=== PATIENT | male | born 2000 | race Caucasian/White ===

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

== ENCOUNTER 2020-07-31 15:19 | Emergency (ER) | payer MEDICAID, OTHER ==
[2020-07-31] MEDS ORDERED: Lidocaine 1% with EPINEPHrine 1:100,000 10 ML MDV INJECT ONE (15:58)
[2020-07-31] MEDS ORDERED: Lidocaine 1% with EPINEPHrine 1:100,000 20 ML MDV INJECT ONE (16:00)
[2020-07-31] MEDS ORDERED: Lidocaine 1% with EPINEPHrine 1:100,000 20 ML MDV ONE (16:00)
--- NOTE | 2020-07-31 16:10 | EDM.PDOC ---
ED HPI GENERAL MEDICAL PROBLEM - General Chief Complaint: Skin Complaint Stated Complaint: SKIN TAG REMOVED BLEEDING FOR 2 HRS Time Seen by Provider: 07/31/20 15:23 Source of Information: Reports: Patient History Limitations: Reports: No Limitations - History of Present Illness INITIAL COMMENTS - FREE TEXT/NARRATIVE: HISTORY AND PHYSICAL: History of present illness: Patient is a 20-year-old male who presents emergency room today with concern of a bleeding skin tag on his abdomen that started 2 hours prior to travel to the emergency room. Patient states that he scratched the skin tag which she has had for many years and it started bleeding. Patient states that he is apply pressure to the area and is unable to get it to stop bleeding. Patient states that he has had this area for quite some time and has noticed that enlarging over the past 1 year but has not been seen or evaluated for this. Patient denies any dizziness or lightheaded and states that he has been keeping pressure on it consistently for almost 2 hours and continues to bleed. Patient states that he is up-to-date on tetanus. Patient denies any other symptoms or concerns. Patient denies fever, chills, chest pain, shortness of breath, or cough. Denies headache, neck stiff ness, change in vision, syncope, or near syncope. Denies nausea, vomiting, abdominal pain, diarrhea, constipation, or dysuria. Has not noted any blood in urine or stool. Patient has been eating and drinking appropriately. Review of systems: As per history of present illness and below otherwise all systems reviewed and negative. Past medical history: As per history of present illness and as reviewed below otherwise noncontributory. Surgical history: As per history of present illness and as reviewed below otherwise noncontributory. Social history: See social history for further information Family history: As per history of present illness and as reviewed below otherwise noncontributory. Physical exam: General: Patient is alert, oriented, and in no acute distress. Patient sitting comfortably on exam table. Vitals stable and reviewed by me. HEENT: Atraumatic, normocephalic, pupils equal and reactive bilaterally, negative for conjunctival pallor or scleral icterus, mucous membranes moist, TMs normal bilaterally, throat clear, neck supple, nontender, trachea midline. No drooling or trismus noted. No meningeal signs. No hot potato voice noted. Lungs: Clear to auscultation, breath sounds equal bilaterally, chest nontender. Heart: S1S2, regular rate and rhythm without overt murmur Abdomen: See skin. Otherwise, Soft, nondistended, nontender. Negative for masses or hepatosplenomegaly. Negative for costovertebral tenderness. Pelvis: Stable nontender. Genitourinary: Deferred. Rectal: Deferred. Skin: There is a 1cm hemangioma of the right sided mid abdomen with the bottom open and actively bleeding. Otherwise, Intact, warm, dry. No lesions or rashes noted. Extremities: Atraumatic, negative for cords or calf pain. Neurovascular unremarkable. Neuro: Awake, alert, oriented. Cranial nerves II through XII unremarkable. Cerebellum unremarkable. Motor and sensory unremarkable throughout. Exam nonfoc al. Notes: Pressure dressing with Surgicel was applied to the area that was bleeding and patient kept this on for 20 to 30 minutes. After removal, bleeding has stopped and hemostasis achieved. Remainder Surgicel Tegaderm dressing placed. Signs and symptoms are prompt return to the ED thoroughly discussed with patient. Discussed importance for follow-up with a primary care provider. Voices understanding and is agreeable to plan of care. Denies any further questions or concerns at this time. Diagnostics: None Therapeutics: Lidocaine w epi, SurgiSeal pressure dressing Prescription: None Impression: Bleeding wound Plan: 1. Keep the dressing on for 24 hours before removing. Remove the dressing in 24 hours as discussed. 2. Follow-up with a primary care provider as discussed. Return to the ED as needed and as discussed. Definitive disposition and diagnosis as appropriate pending reevaluation and review of above. - Related Data Allergies Allergy/AdvReac Type Severity Reaction Status Date / Time No Known Allergies Allergy Verified 07/31/20 15:40 Home Meds: Home Meds . [No Known Home Meds] 10/02/17 [History] Past Medical History - Past Health History Medical/Surgical History: Denies Medical/Surgical History Neurological History: Reports: Concussion Social & Family History - Family History Family Medical History: No Pertinent Family History - Caffeine Use Caffeine Use: Reports: None - Recreational Drug Use Recreational Drug Use: No ED ROS GENERAL - Review of Systems Review Of Systems: Comprehensive ROS is negative, except as noted in HPI. ED EXAM, SKIN/RASH Exam: See Below (see dictation) Course - Vital Signs Last Recorded V/S: Last Vital Signs Temp 97.9 F 06/22/21 15:38 Pulse 97 07/31/20 15:38 Resp 16 07/31/20 15:38 BP 136/85 07/31/20 15:38 Pulse Ox 98 07/31/20 15:38 - Orders/Labs/Meds Meds: Medications Discontinued Medications Generic Name Dose Route Start Last Admin Trade Name Champ PRN Reason Stop Dose Admin Lidocaine/Epinephrine 10 ml 07/31/20 15:58 07/31/20 16:01 Lidocaine 1% With Epinephrine 1:100,000 10 Ml Mdv INJECT 07/31/20 15:59 Not Given ONETIME ONE Lidocaine/Epinephrine 20 ml 07/31/20 16:00 07/31/20 16:01 Lidocaine 1% With Epinephrine 1:100,000 20 Ml Mdv INJECT 07/31/20 16:01 20 ml ONETIME ONE Administration Lidocaine/Epinephrine Confirm 07/31/20 16:00 07/31/20 16:01 Lidocaine 1% With Epinephrine 1:100,000 20 Ml Mdv Administered 07/31/20 16:01 Not Given Dose 20 ml .ROUTE .STK-MED ONE Departure - Departure Time of Disposition: 16:45 Disposition: Home, Self-Care 01 Clinical Impression: Bleeding from wound - Discharge Information Instructions: Uncontrolled Wound Bleeding Referrals: PCP,Declined [Primary Care Provider] - Forms: ED Department Discharge Additional Instructions: The following information is given to patients seen in the emergency department who are being discharged to home. This information is to outline your options for follow-up care. We provide all patients seen in our emergency department with a follow-up referral. The need for follow-up, as well as the timing and circumstances, are variable depending upon the specifics of your emergency department visit. If you don't have a primary care physician on staff, we will provide you with a referral. We always advise you to contact your personal physician following an emergency department visit to inform them of the circumstance of the visit and for follow-up with them and/or the need for any referrals to a consulting specialist. The emergency department will also refer you to a specialist when appropriate. This referral assures that you have the opportunity for follow-up care with a specialist. All of these measure are taken in an effort to provide you with optimal care, which includes your follow-up. Under all circumstances we always encourage you to contact your private physician who remains a resource for coordinating your care. When calling for follow-up care, please make the office aware that this follow-up is from your recent emergency room visit. If for any reason you are refused follow-up, please contact the [facility] Emergency Department at and asked to speak to the emergency department charge nurse. [facility] [address] [place] [address] [facility] [address] [place] [address] 1. Keep the dressing on for 24 hours before removing. Remove the dressing in 24 hours as discussed. 2. Follow-up with a primary care provider as discussed. Return to the ED as needed and as discussed. Sepsis Event Note (ED) - Evaluation Sepsis Screening Result: No Definite Risk - Focused Exam Vital Signs: Vital Signs Temp Pulse Resp BP Pulse Ox 07/31/20 15:38 97.9 F 97 16 136/85 98
== END 2020-07-31 17:18 | disposition home or self-care (01) ==
LOC: MW.ED 15:19
DX: L76.21 Postprocedural hemorrhage of skin and subcutaneous tissue following a dermatologic procedure (principal); D18.03 Hemangioma of intra-abdominal structures
CPT/HCPCS: 99283

== ENCOUNTER 2023-08-08 12:22 | Emergency (ER) | payer MEDICAID ==
[2023-08-08] MEDS ORDERED: Sodium Chloride 0.9% 10 ML Syringe FLUSH PRN (12:30)
[2023-08-08] MEDS ORDERED: Sodium Chloride 0.9% 2.5 ML Syringe FLUSH PRN (12:30)
[2023-08-08] MEDS: Sodium Chloride 0.9% 1,000 ML IV ONE ×2 (13:15→14:17)
[2023-08-08 13:21] LABS: APPEARANCE,URINE CLEAR; BILIRUBIN,URINE NEGATIVE (NEGATIVE); COLOR,URINE YELLOW; GLUCOSE,URINE NEGATIVE (NEGATIVE); KETONES,URINE TRACE mg/dL (NEGATIVE); LEUKOCYTE ESTERASE,URINE NEGATIVE (NEGATIVE); NITRITE,URINE NEGATIVE (NEGATIVE); OCCULT BLOOD,URINE NEGATIVE (NEGATIVE); PH,URINE 5.5 (5.0-8.0); PROTEIN,URINE 30 mg/dL (NEGATIVE); UROBILINOGEN,URINE 0.2 EU/dL (<2.0)
[2023-08-08 13:24] LABS: BASOPHILS ABSOLUTE AUTO 0.05 K/uL (0.00-0.20); BASOPHILS PERCENT AUTO 0.3 % (0.0-1.0); HEMATOCRIT 46.2 % (42.0-52.0); HEMOGLOBIN 16.8 g/dL (14.0-18.0); IMMATURE GRAN ABSOLUTE AUTO 0.07 K/uL (0.00-0.05); IMMATURE GRAN PERCENT AUTO 0.5 % (0.0-0.4); LYMPHOCYTES ABSOLUTE AUTO 0.86 K/uL (1.00-4.80); LYMPHOCYTES PERCENT AUTO 5.6 % (24.0-44.0); MEAN CORPUSCULAR HEMOGLOBIN 32.9 pg (28.0-32.0); MEAN CORPUSCULAR HGB CONC 36.4 g/dL (32.0-36.0); MEAN CORPUSCULAR VOLUME 90.4 fL (83.0-99.0); MEAN PLATELET VOLUME 8.8 fL (9.4-12.4); MONOCYTES PERCENT AUTO 5.8 % (0.0-8.0); NEUTROPHILS ABSOLUTE AUTO 13.53 K/uL (1.80-7.70); NEUTROPHILS PERCENT AUTO 87.8 % (41.0-71.0); PLATELET COUNT,PLT 239 K/uL (150-400); RED BLOOD CELL COUNT 5.11 M/uL (4.52-5.90); WHITE BLOOD CELL COUNT,WBC 15.41 K/uL (3.9-11.3)
[2023-08-08 13:30] LABS: BACTERIA,URINE OCCASIONAL (NEGATIVE); EPITHELIAL CELLS,URINE OCCASIONAL (NONE-FEW); RBC,URINE 0-1 (0-2/HPF)
[2023-08-08 13:31] LABS: AMPHETAMINES SCREEN, URINE NEGATIVE (CUTOFF=500); BARBITURATE SCREEN,URINE NEGATIVE (CUTOFF=200); BENZODIAZEPINES SCREEN,URINE NEGATIVE (CUTOFF=150); BUPRENORPHINE SCREEN,URINE NEGATIVE (CUTOFF=10); METHADONE SCREEN, URINE NEGATIVE (CUTOFF=200); METHAMPHETAMINES SCREEN, URINE NEGATIVE (CUTOFF=500); MUCUS,URINE LIGHT (NONE-MOD); OXYCODONE SCREEN,URINE NEGATIVE (CUT0FF=100); PCP SCREEN,URINE NEGATIVE (CUTOFF=25); THC SCREEN,URINE 20 NG/ML PRESUMPTIVE POSITIVE (CUTOFF=50)
[2023-08-08] MEDS: Ondansetron 4 MG/2 ML SDV IVPUSH ONE (13:38)
[2023-08-08] MEDS: Ketorolac 30 MG/ML SDV IVPUSH ONE (13:38)
[2023-08-08 13:41] LABS: BASE EXCESS VENOUS -1.7 (-2.0-3.0); BICARBONATE,VENOUS 24 mEQ/mL (22-28); PCO2 VENOUS 42 mmHG (41-51); PH,VENOUS 7.36 (7.31-7.41); PO2 VENOUS < 30 mmHG (35-45)
[2023-08-08 13:59] LABS: LACTIC ACID 4.1 mmol/L (0.4-2.0)
[2023-08-08 14:08] LABS: A/G RATIO 1.3 (0.9-1.6); ACETAMINOPHEN <2.0 ug/mL; ALANINE AMINOTRANSFERASE,ALT 29 IU/L (14-63); ALBUMIN 4.6 g/dL (3.4-5.0); ALKALINE PHOSPHATASE 111 U/L (46-116); ASPARTATE AMNIOTRANSFERASE,AST 25 IU/L (15-37); BILIRUBIN TOTAL 1.5 mg/dL (0.2-1.0); BLOOD UREA NITROGEN,BUN 14 mg/dL (7.0-18.0); CALCIUM 8.8 mg/dL (8.5-10.1); CARBON DIOXIDE,CO2 23.2 mmol/L (21.0-32.0); CHLORIDE,CL 100 mmol/L (98-107); CREATININE 1.3 mg/dL (0.8-1.3); EST CRCL DRUG DOSING (CG) 94.13 mL/min; ETHANOL BLOOD MEDICAL 15 mg/dL; GLUCOSE RANDOM 76 mg/dL (74-106); POTASSIUM,K 3.9 mmol/L (3.5-5.1); PROTEIN TOTAL,TP 8.1 g/dL (6.4-8.2); SALICYLATE <0.2 mg/dL (0.0-20.0); SODIUM,NA 141 mmol/L (136-148); TSH ULTRASENSITIVE 2.29 uIU/mL (0.36-3.74)
[2023-08-08 14:09] LABS: ESTIMATED GFR 79 mL/min (>60)
== END 2023-08-08 16:40 ==
LOC: MW.ED 12:22
DX: T58.92XA Toxic effect of carbon monoxide from unspecified source, intentional self-harm, initial encounter (principal); R79.89 Other specified abnormal findings of blood chemistry; Z75.8 Other problems related to medical facilities and other health care
CPT/HCPCS: 36415; 71045; 80053; 80143; 80179; 80305; 80307; 81001; 82375; 82550; 82803; 83605; 84443; 84484; 85025; 87040; 93005; 96360; 96361; 99285; J7030